=== PATIENT | male | born 2000 | race Caucasian/White ===

== ENCOUNTER 2022-04-03 20:51 | Emergency (ER) | payer BC ==
[2022-04-03 22:15] VITALS: TEMP 98.2
--- NOTE | 2022-04-04 00:41 | ED ---
Psych HPI - General Chief Complaint: Psychiatric Symptoms Stated Complaint: Mental Health Time Seen by Provider: 04/04/22 00:30 Source: patient Mode of arrival: ambulatory - History of Present Illness Initial Comments: This patient is 21-year-old man who presents with complaint that he is now not sleeping well. The patient's states that he was not able sleep Friday or Friday night. The patient told his mother that he was "battling demons." When I specifically inquired, the patient is not able to state that he does not feel like harming himself. He did have recent hospitalization at [facility] for bipolar episode and though he is improved patient is not feeling quite well yet MD Complaint: feels depressed, other -: days(s) Associated Psychiatric Symptoms: racing thoughts History of same: Yes Quality: intermittent Improves With: none Worsens With: none - Related Data Allergies Allergy/AdvReac Type Severity Reaction Status Date / Time bacitracin Allergy Unknown Verified 04/03/22 22:16 [From Neosporin ([id number])] neomycin Allergy Unknown Verified 04/03/22 22:16 [From Neosporin ([id number])] peanut Allergy Unknown Verified 04/03/22 22:16 polymyxin B Allergy Unknown Verified 04/03/22 22:16 [From Neosporin ([id number])] Review of Systems ROS Statement: Those systems with pertinent positive or pertinent negative responses have been documented in the HPI. ROS Other: All systems not noted in ROS Statement are negative. Constitutional: Denies: fever, chills Respiratory: Denies: cough, dyspnea Cardiovascular: Denies: chest pain, palpitations Gastrointestinal: Denies: abdominal pain, vomiting, diarrhea Genitourinary: Denies: dysuria, hematuria Musculoskeletal: Denies: back pain Skin: Denies: rash Neurological: Denies: headache Psychiatric: Reports: as per HPI, anxiety. Denies: homicidal thoughts Past Medical History Past Medical History: Asthma History of Any Multi-Drug Resistant Organisms: None Reported Past Surgical History: No Surgical Hx Reported Past Psychological History: No Psychological Hx Reported Smoking Status: Never smoker Past Alcohol Use History: Daily Past Drug Use History: Marijuana General Exam Limitations: no limitations General appearance: alert, in no apparent distress Head exam: Present: atraumatic, normocephalic Eye exam: Present: normal appearance. Absent: scleral icterus, conjunctival injection ENT exam: Present: normal oropharynx Neck exam: Present: normal inspection Respiratory exam: Present: normal lung sounds bilaterally. Absent: respiratory distress, wheezes, rales, rhonchi, stridor Cardiovascular Exam: Present: regular rate, normal rhythm, normal heart sounds. Absent: systolic murmur, diastolic murmur, rubs, gallop GI/Abdominal exam: Present: soft. Absent: distended, tenderness, guarding, rebound, rigid, mass Extremities exam: Present: normal inspection, normal capillary refill. Absent: pedal edema, calf tenderness Back exam: Present: normal inspection. Absent: CVA tenderness (R), CVA tenderness (L) Neurological exam: Present: alert Psychiatric exam: Present: anxious. Absent: depressed, agitated, homicidal ideation Skin exam: Present: warm, dry, intact, normal color. Absent: rash Course Vital Signs 04/03/22 22:10 Temperature 98.2 F Pulse Rate 87 Respiratory 20 Rate Blood Pressure 136/74 O2 Sat by Pulse 99 Oximetry Disposition Clinical Impression: Shelbie Disposition: HOME SELF-CARE Condition: Good Instructions (If sedation given, give patient instructions): Mood Disorders (ED ) Is patient prescribed a controlled substance at d/c from ED?: No Referrals: Carlin Black MD [Primary Care Provider] - 1-2 days Time of Disposition: 02:30
[2022-04-04] MEDS ORDERED: QUEtiapine 100 MG TAB PO STA (02:29)
[2022-04-04 02:49] VITALS: BP 118/72; PULSE 81; RESP 16
== END 2022-04-04 02:47 | disposition home or self-care (01) ==
LOC: EC 20:51
DX: F30.9 Manic episode, unspecified (principal); F12.90 Cannabis use, unspecified, uncomplicated
CPT/HCPCS: 99283

== ENCOUNTER 2024-04-10 13:22 | Emergency (ER) | payer BC ==
--- NOTE | 2024-04-10 19:07 | ED ---
Psych HPI - General Source: patient, RN notes reviewed Mode of arrival: ambulatory - History of Present Illness MD Complaint: feels depressed, other <Alfredo Mckeon - Last Filed: 04/10/24 22:52> <Kodak Walker - Last Filed: 04/12/24 15:39> - General Chief Complaint: Psychiatric Symptoms Stated Complaint: Mental Health Time Seen by Provider: 04/10/24 18:22 - History of Present Illness Initial Comments: 24-year-old male with a history of bipolar depression with psychotic features ADHD anxiety who states for the past couple months he has been having episodes of getting angry easily over the past several days has gotten much worse he does feel agitated when he gets angry and thinks most striking out but does not really think he would follow through with that. He denies any suicidal thoughts or ideation at this time. He is concerned that he may not be able to stop himself perhaps from hurting someone however. He states he recently ran out of his Cymbalta and also ran out of Wellbutrin but this was not started again. He is seen by [facility] now. Denies any drugs or alcohol (Alfredo Mckeon) - Related Data Previous Rx's Medication Instructions Recorded DULoxetine HCL [Cymbalta] 60 mg PO DAILY #9 cap 04/11/24 Divalproex [Depakote] 250 mg PO BID #18 tab 04/11/24 Allergies Allergy/AdvReac Type Severity Reaction Status Date / Time bacitracin Allergy Unknown Verified 04/10/24 13:50 [From Neosporin ([id number])] neomycin Allergy Unknown Verified 04/10/24 13:50 [From Neosporin ([id number])] peanut Allergy Unknown Verified 04/10/24 13:50 polymyxin B Allergy Unknown Verified 04/10/24 13:50 [From Neosporin ([id number])] Review of Systems ROS Other: All systems not noted in ROS Statement are negative. <Alfredo Mckeon - Last Filed: 04/10/24 22:52> ROS Other: All systems not noted in ROS Statement are negative. <Kodak Walker - Last Filed: 04/12/24 15:39> ROS Statement: Those systems with pertinent positive or pertinent negative responses have been documented in the HPI. Past Medical History Past Medical History: Asthma History of Any Multi-Drug Resistant Organisms: None Reported Past Surgical History: No Surgical Hx Reported Past Psychological History: No Psychological Hx Reported Smoking Status: Never smoker Past Alcohol Use History: Daily Past Drug Use History: Marijuana <Alfredo Mckeon - Last Filed: 04/10/24 22:52> General Exam Limitations: no limitations General appearance: alert, anxious Head exam: Present: atraumatic, normocephalic, normal inspection Eye exam: Present: normal appearance, PERRL, EOMI. Absent: scleral icterus, conjunctival injection, periorbital swelling ENT exam: Present: normal exam, mucous membranes moist Neck exam: Present: normal inspection. Absent: tenderness, meningismus, lymphadenopathy Respiratory exam: Present: normal lung sounds bilaterally. Absent: respiratory distress, wheezes, rales, rhonchi, stridor Cardiovascular Exam: Present: regular rate, normal rhythm, normal heart sounds. Absent: systolic murmur, diastolic murmur, rubs, gallop, clicks GI/Abdominal exam: Present: soft, normal bowel sounds. Absent: distended, tenderness, guarding, rebound, rigid Extremities exam: Present: normal inspection, full ROM, normal capillary refill. Absent: tenderness, pedal edema, joint swelling, calf tenderness Back exam: Present: normal inspection Neurological exam: Present: alert, oriented X3, CN II-XII intact Psychiatric exam: Present: depressed, anxious Skin exam: Present: warm, dry, intact, normal color. Absent: rash <Alfredo Mckeon - Last Filed: 04/10/24 22:52> - General Exam Comments Initial Comments: This is a well-developed well-nourished awake alert oriented x 4 male (MikeAlfredo) Course Vital Signs 04/10/24 04/10/24 04/11/24 13:48 23:47 06:43 Temperature 98.3 F 97.6 F Pulse Rate 94 74 80 Respiratory 20 18 16 Rate Blood Pressure 113/71 139/84 124/68 O2 Sat by Pulse 99 100 96 Oximetry Medical Decision Making <Alfredo Mckeon - Last Filed: 04/10/24 22:52> <Kodak Walker - Last Filed: 04/12/24 15:39> - Medical Decision Making The patient is endorsed to Dr. Walker at her shift change pending EPS evaluation (Alfredo Mckeon) Was pt. sent in by a medical professional or institution (Dr., PA, CENTER RECEPTIONIST, urgent care, hospital, or halfway...) When possible be specific @ -[No] Did you speak to anyone other than the patient for history (EMS, parent, family, police, friend...)? What history was obtained from this source @ -[No] Did you review nursing and triage notes (agree or disagree)? Why? @ -[I reviewed and agree with nursing and triage notes] Were old charts reviewed (outside hosp., previous admission, EMS record, old EKG, old radiological studies, urgent care reports/EKG's, halfway records)? Report findings @ -[No old charts were reviewed] Differential Diagnosis (chest pain, altered mental status, abdominal pain women, abdominal pain men, vaginal bleeding, weakness, fever, dyspnea, syncope, headache, dizziness, GI bleed, back pain, seizure, CVA, palpatations, mental health, musculoskeletal)? @ -[Differential Mental Health Depression, anxiety, bipolar, psychosis, schizophrenia, borderline personality, situational depression, adjustment disorder, behavioral disorder, brain tumor, malingering, substance abuse, encephalopathy, medication reaction, dementia, hypothyroidism, degenerative neurologic disorder, lupus.... This is not meant to be all-inclusive list EKG interpreted by me (3pts min.). @ -[As above] X-rays interpreted by me (1pt min.). @ -[None done] CT interpreted by me (1pt min.). @ -[None done] U/S interpreted by me (1pt. min.). @ -[None done] What testing was considered but not performed or refused? (CT, X-rays, U/S, labs)? Why? @ -[None] What meds were considered but not given or refused? Why? @ -[None] Did you discuss the management of the patient with other professionals (professionals i.e. YOLI Arango, CENTER RECEPTIONIST, lab, RT, psych nurse, social director, log processor operator, teacher, housing officer, employment evaluator/case manager)? Give summary @ -[The patient was seen by EPS personnel and they staffed the case with psychiatrist and develop safety plan for the patient to have close outpatient care. Was smoking cessation discussed for >3mins.? @ -[No] Was critical care preformed (if so, how long)? @ -[No] Were there social determinants of health that impacted care today? How? (Homelessness, low income, unemployed, alcoholism, drug addiction, transportation, low edu. Level, literacy, decrease access to med. care, fci, rehab)? @ -[No] Was there de-escalation of care discussed even if they declined (Discuss DNR or withdrawal of care, Hospice)? DNR status @ -[No] What co-morbidities impacted this encounter? (DM, HTN, Smoking, COPD, CAD, Cancer, CVA, ARF, Chemo, Hep., AIDS, mental health diagnosis, sleep apnea, morbid obesity)? @ -[Bipolar disorder Was patient admitted / discharged? Hospital course, mention meds given and route, prescriptions, significant lab abnormalities, going to OR and other pertinent info. @ -[The patient was seen by EPS personnel and they staffed the case with psychiatrist and develop safety plan for the patient to have close outpatient care. Undiagnosed new problem with uncertain prognosis? @ -[No] Drug Therapy requiring intensive monitoring for toxicity (Heparin, Nitro, Insulin, Cardizem)? @ -[No] Were any procedures done? @ -[No] Diagnosis/symptom? @ -[Mood disorder Acute, or Chronic, or Acute on Chronic? @ -[Acute Uncomplicated (without systemic symptoms) or Complicated (systemic symptoms)? @ -[default] Side effects of treatment? @ -[No] Exacerbation, Progression, or Severe Exacerbation? @ -[No] Poses a threat to life or bodily function? How? (Chest pain, USA, NM, pneumonia, PE, COPD, DKA, ARF, appy, cholecystitis, CVA, Diverticulitis, Homicidal, Suicidal, threat to staff... and all critical care pts) @ -[No] (Kodak Walker) - Lab Data Lab Results 04/10/24 Range/Units 19:08 Urine Opiates Screen Not Detected (NotDetected) Ur Oxycodone Screen Not Detected (NotDetected) Urine Methadone Screen Not Detected (NotDetected) Ur Barbiturates Screen Not Detected (NotDetected) U Tricyclic Antidepress Detected H (NotDetected) Ur Phencyclidine Scrn Not Detected (NotDetected) Ur Amphetamines Screen Not Detected (NotDetected) U Methamphetamines Scrn Not Detected (NotDetected) U Benzodiazepines Scrn Not Detected (NotDetected) Urine Cocaine Screen Not Detected (NotDetected) U Marijuana (THC) Screen Not Detected (NotDetected) Disposition <Alfredo Mckeon - Last Filed: 04/10/24 22:52> Is patient prescribed a controlled substance at d/c from ED?: No <Kodak Walker - Last Filed: 04/12/24 15:39> Clinical Impression: Mood disorder Disposition: HOME SELF-CARE Condition: Fair Instructions (If sedation given, give patient instructions): Mood Disorders (ED) Prescriptions: DULoxetine HCL [Cymbalta] 60 mg PO DAILY #9 cap Divalproex [Depakote] 250 mg PO BID #18 tab Referrals: Carlin Black MD [Primary Care Provider] - 1-2 days
[2024-04-10 19:26] LABS: Amphetamine Screen,Urine Not Detected (NotDetected); Barbiturate Screen,Urine Not Detected (NotDetected); Benzodiazepines Screen,Urine Not Detected (NotDetected); Cocaine Screen,Urine Not Detected (NotDetected); Methadone Screen, Urine Not Detected (NotDetected); Opiate Screen,Urine Not Detected (NotDetected); Oxycodone Screen, Urine Not Detected (NotDetected); Phencyclidine Screen,Urine Not Detected (NotDetected); Tricyclic Antidepressant,Urine Detected (NotDetected); Urn Cannabinoid Scrn Not Detected (NotDetected)
[2024-04-11 06:44] VITALS: BP 124/68; PULSE 80; RESP 16; TEMP 97.6
== END 2024-04-11 06:43 | disposition home or self-care (01) ==
LOC: EC 13:22
DX: F31.9 Bipolar disorder, unspecified (principal); Z88.1 Allergy status to other antibiotic agents; Z91.010 Allergy to peanuts; Z88.2 Allergy status to sulfonamides
CPT/HCPCS: 80306; 82075; 99285